=== PATIENT | male | born 1985 | race Caucasian/White ===

== ENCOUNTER 2018-09-23 00:44 | Emergency (ER) | payer SELFPAY ==
[~2018-09-23] VITALS: Ht 177.8 cm; Wt 90.7 kg
[2018-09-23 01:28] LABS: BASO # 0.1 x10^3/uL (0.0-0.2); BASO % 1 % (0-3); EOS # 0.3 x10^3/uL (0.0-0.7); EOS % 4 % (0-3); HEMATOCRIT 47.4 % (39.0-53.0); HEMOGLOBIN 15.8 g/dL (13.0-17.5); LYMPH # 3.3 x10^3/uL (1.0-4.8); LYMPH % 40 % (24-48); MEAN CORPUSCULAR HEMOGLOBIN 27 pg (25-35); MEAN CORPUSCULAR HGB CONC 33 g/dL (31-37); MEAN CORPUSCULAR VOLUME 83 fL (79-100); MONO # 0.8 x10^3/uL (0.0-1.1); MONO % 10 % (0-9); NEUT # 3.7 x10^3/uL (1.8-7.7); NEUT % 45 % (31-73); PLATELET COUNT 292 x10^3/uL (140-400); RED BLOOD COUNT 5.75 x10^6/uL (4.30-5.70); RED CELL DISTRIBUTION WIDTH 19.4 % (11.5-14.5); WHITE BLOOD COUNT 8.1 x10^3/uL (4.0-11.0)
[2018-09-23 01:36] LABS: PROTHROMBIN TIME PATIENT 13.9 SEC (11.7-14.0)
[2018-09-23 01:41] LABS: CALCIUM 8.6 mg/dL (8.5-10.1); CREATININE 1.2 mg/dL (0.7-1.3); GFR 70.2; POTASSIUM 4.5 mmol/L (3.5-5.1)
[2018-09-23] MEDS ORDERED: CONTRAST GIVEN. MC PRN (01:45)
[2018-09-23 01:47] LABS: ALBUMIN 3.3 g/dL (3.4-5.0); ALBUMIN/GLOBULIN RATIO 0.9 (1.0-1.7); TOTAL BILIRUBIN 0.4 mg/dL (0.2-1.0); TOTAL PROTEIN 6.9 g/dL (6.4-8.2)
[2018-09-23] MEDS ORDERED: fentaNYL PF VIAL 100 MCG/2 ML VIAL IV ONE (02:00)
[2018-09-23] MEDS ORDERED: IOHEXOL 300 MG/ML 100ML VIAL. IV ONE (02:00)
[2018-09-23] MEDS ORDERED: LIDOCAINE 2% 20 ML VIAL. IJ ONE (02:00)
--- NOTE | 2018-09-23 02:40 | RAD ---
PQRS Compliance Statement: One or more of the following individualized dose reduction techniques were utilized for this examination: 1. Automated exposure control 2. Adjustment of the mA and/or kV according to patient size 3. Use of iterative reconstruction technique CT HEAD AND CERVICAL SPINE WITHOUT CONTRAST History: Trauma, 15 steps. Large left flank abrasion. Fall. Comparison: None. Procedure: Axial images are obtained of the head from the skull base through the vertex without IV contrast. Noncontrast helical CT of the cervical spine was performed. Axial, sagittal, and coronal reconstructions were obtained. Findings: The ventricles and sulci are normal for the patient's age. No mass-effect, midline shift, hemorrhage or obvious acute infarction is identified. Basilar cisterns are patent. Bone windows demonstrate no significant calvarial abnormality. The visualized paranasal sinuses are clear. Mastoid air cells are well aerated. There is no evidence of acute fracture or acute malalignment of the cervical spine. 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 There is disc space narrowing and degenerative endplate spurring of C6/C7. No perched or jumped facet joints. There is well-corticated nonunion at the tip of the C7 spinous process. Finding may be congenital or due to old trauma. The craniovertebral junction is intact. Visualized soft tissues of the neck demonstrate no significant abnormalities. The visualized lung apices are clear. IMPRESSION: 1. No acute intracranial abnormality. 2. No acute fracture of the cervical spine. Electronically signed by: Matthew Graham MD (09/23/2018 2:37 AM) [facility]
--- NOTE | 2018-09-23 02:58 | RAD ---
PQRS Compliance Statement: One or more of the following individualized dose reduction techniques were utilized for this examination: 1. Automated exposure control 2. Adjustment of the mA and/or kV according to patient size 3. Use of iterative reconstruction technique CT CHEST ABD PELVIS W/CONTRAST Clinical Indication: Trauma, 15 steps. Large left flank abrasion. Fall. Comparison: None. TECHNIQUE: Helical CT imaging of the chest abdomen and pelvis is performed after 75 cc of Omnipaque 300 IV contrast. Findings: There is no acute traumatic aortic injury. No mediastinal hematoma. Moderate bilateral gynecomastia. Cardiac size normal, no pericardial effusion. There is no pneumothorax. The central airways are patent. The lungs are clear. There is no acute traumatic solid organ injury in the upper abdomen. No acute injury of bowel. The appendix is normal. There is no intraperitoneal free air or free fluid. The urinary bladder is intact. No acute fracture of the thoracic spine. There is bilateral L5 spondylolysis. Mild grade 1 anterolisthesis of L5 on S1. Minimal grade 1 retrolisthesis of L4 on L5. No acute pelvic fracture. No acute displaced rib fracture. IMPRESSION: No acute traumatic injury in the chest abdomen or pelvis. Electronically signed by: Matthew Graham MD (09/23/2018 2:55 AM) [facility]
[2018-09-23] MEDS ORDERED: MORPHINE SULFATE 4 MG/ML VIAL. IV ONE (03:00)
[2018-09-23] MEDS ORDERED: CEPH500T PO (03:49)
[2018-09-23 04:00] VITALS: BP 136/70
[2018-09-23] MEDS ORDERED: DIPHTH,PERTUSS(ACELL),TET TOX 0.5 ML DISP.SYRIN. VAX IM ONE (04:00)
--- NOTE | 2018-09-23 04:34 | PHYS DOC ---
Past Medical History Past Medical History: No Pertinent History Past Surgical History: No Surgical History Alcohol Use: None Drug Use: None Adult General Chief Complaint Chief Complaint: TRAUMA ALERT HPI HPI Patient is a 33 year old m cc of trauma. Patient is living in a new house open the wrong door fell down 15 stairs then passed out when he tried to get up. hit head, also comlpaining of neck pain right side lateral no cp no abdo pain also complaining of right finger dislocation Review of Systems Review of Systems Constitutional: Denies fever or chills [] Eyes: Denies change in visual acuity, redness, or eye pain [] HENT: Denies nasal congestion or sore throat [] Integument: Neurologic:s [] All other systems were reviewed and found to be within normal limits, except as documented in this note. Current Medications Current Medications Current Medications Medications (Trade) Dose Ordered Sig/Sparkle Start Time Stop Time Status Last Admin Dose Admin Cefazolin Sodium 50 ml @ 100 mls/hr 1X ONCE 09/23/18 02:00 09/23/18 02:29 DC 09/23/18 02:15 100 MLS/HR Diphtheria/ Tetanus/Acell Pertussis (Boostrix) 0.5 ml ONCE ONCE 09/23/18 04:00 09/23/18 04:01 DC 09/23/18 03:45 0.5 ML Fentanyl Citrate (Fentanyl 2ml Vial) 50 mcg 1X ONCE 09/23/18 02:00 09/23/18 02:01 DC 09/23/18 02:07 50 MCG Info (CONTRAST GIVEN -- Rx MONITORING) 1 each PRN DAILY PRN 09/23/18 01:45 09/23/18 04:10 DC Iohexol (Omnipaque 300 Mg/ml) 75 ml 1X ONCE 09/23/18 02:00 09/23/18 02:01 DC 09/23/18 01:55 75 ML Lidocaine HCl 20 ml 1X ONCE 09/23/18 02:00 09/23/18 02:01 DC 09/23/18 02:00 20 ML Morphine Sulfate (Morphine Sulfate) 4 mg 1X ONCE 09/23/18 03:00 09/23/18 03:01 DC 09/23/18 02:49 4 MG Allergies Allergies Allergies Coded Allergies Type Severity Reaction Last Updated Verified No Known Drug Allergies 09/23/18 No Physical Exam Physical Exam Constitutional: Well developed, well nourished, no acute distress, non-toxic appearance. [] HENT: Normocephalic, atraumatic, bilateral external ears normal, oropharynx moist, no oral exudates, nose normal. [] Eyes: PERRLA, EOMI, conjunctiva normal, no discharge. [] Neck: In c-collar there is mostly paraspinous tenderness laterally C4-C5 Cardiovascular:Heart rate regular rhythm, no murmur [] Lungs & Thorax: Bilateral breath sounds clear to auscultation [] Abdomen: Bowel sounds normal, soft, no tenderness, no masses, no pulsatile masses. [] Skin: 2 cm lac volar ring finger Back: Large abrasion on the left posterior back Extremities: There is a finger dislocation on the ring finger ring finger. Neurologic: Alert and oriented X 3, normal motor function, normal sensory function, no focal deficits noted. [] Psychologic: Affect normal, judgement normal, mood normal. [] Current Patient Data Vital Signs Vital Signs Date Time Temp Pulse Resp B/P (MAP) Pulse Ox O2 Delivery O2 Flow Rate FiO2 09/23/18 04:00 74 18 136/70 (92) 98 Room Air 09/23/18 01:00 98.0 98.0 Lab Values Laboratory Tests Test 09/23/18 01:20 White Blood Count 8.1 x10^3/uL (4.0-11.0) Red Blood Count 5.75 x10^6/uL (4.30-5.70) H Hemoglobin 15.8 g/dL (13.0-17.5) Hematocrit 47.4 % (39.0-53.0) Mean Corpuscular Volume 83 fL (79-100) Mean Corpuscular Hemoglobin 27 pg (25-35) Mean Corpuscular Hemoglobin Concent 33 g/dL (31-37) Red Cell Distribution Width 19.4 % (11.5-14.5) H Platelet Count 292 x10^3/uL (140-400) Neutrophils (%) (Auto) 45 % (31-73) Lymphocytes (%) (Auto) 40 % (24-48) Monocytes (%) (Auto) 10 % (0-9) H Eosinophils (%) (Auto) 4 % (0-3) H Basophils (%) (Auto) 1 % (0-3) Neutrophils # (Auto) 3.7 x10^3/uL (1.8-7.7) Lymphocytes # (Auto) 3.3 x10^3/uL (1.0-4.8) Monocytes # (Auto) 0.8 x10^3/uL (0.0-1.1) Eosinophils # (Auto) 0.3 x10^3/uL (0.0-0.7) Basophils # (Auto) 0.1 x10^3/uL (0.0-0.2) Prothrombin Time 13.9 SEC (11.7-14.0) Prothrombin Time INR 1.1 (0.8-1.1) Sodium Level 140 mmol/L (136-145) Potassium Level 4.5 mmol/L (3.5-5.1) Chloride Level 105 mmol/L (98-107) Carbon Dioxide Level 28 mmol/L (21-32) Anion Gap 7 (6-14) Blood Urea Nitrogen 11 mg/dL (8-26) Creatinine 1.2 mg/dL (0.7-1.3) Estimated GFR (Cockcroft-Gault) 70.2 BUN/Creatinine Ratio 9 (6-20) Glucose Level 119 mg/dL (70-99) H Calcium Level 8.6 mg/dL (8.5-10.1) Total Bilirubin 0.4 mg/dL (0.2-1.0) Aspartate Amino Transferase (AST) 23 U/L (15-37) Alanine Aminotransferase (ALT) 26 U/L (16-63) Alkaline Phosphatase 31 U/L (46-116) L Total Protein 6.9 g/dL (6.4-8.2) Albumin 3.3 g/dL (3.4-5.0) L Albumin/Globulin Ratio 0.9 (1.0-1.7) L Laboratory Tests 09/23/18 01:20 Laboratory Tests 09/23/18 01:20 EKG EKG [] Radiology/Procedures Radiology/Procedures CT HEAD AND CERVICAL SPINE WITHOUT CONTRAST History: Trauma, 15 steps. Large left flank abrasion. Fall. Comparison: None. Procedure: Axial images are obtained of the head from the skull base through the vertex without IV contrast. Noncontrast helical CT of the cervical spine was performed. Axial, sagittal, and coronal reconstructions were obtained. Findings: The ventricles and sulci are normal for the patient's age. No mass-effect, midline shift, hemorrhage or obvious acute infarction is identified. Basilar cisterns are patent. Bone windows demonstrate no significant calvarial abnormality. The visualized paranasal sinuses are clear. Mastoid air cells are well aerated. There is no evidence of acute fracture or acute malalignment of the cervical spine. 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 There is disc space narrowing and degenerative endplate spurring of C6/C7. No perched or jumped facet joints. There is well-corticated nonunion at the tip of the C7 spinous process. Finding may be congenital or due to old trauma. The craniovertebral junction is intact. Visualized soft tissues of the neck demonstrate no significant abnormalities. The visualized lung apices are clear. IMPRESSION: 1. No acute intracranial abnormality. 2. No acute fracture of the cervical spine. Electronically signed by: Matthew Carcamo MD (09/23/2018 2:37 AM) [facility] DICTATED and SIGNED BY: MATTHEW CARCAMO MD DATE: 09/23/18 0236 [] Impressions: CHEST ABD PELVIS W/CONTRAST Clinical Indication: Trauma, 15 steps. Large left flank abrasion. Fall. Comparison: None. TECHNIQUE: Helical CT imaging of the chest abdomen and pelvis is performed after 75 cc of Omnipaque 300 IV contrast. Findings: There is no acute traumatic aortic injury. No mediastinal hematoma. Moderate bilateral gynecomastia. Cardiac size normal, no pericardial effusion. There is no pneumothorax. The central airways are patent. The lungs are clear. There is no acute traumatic solid organ injury in the upper abdomen. No acute injury of bowel. The appendix is normal. There is no intraperitoneal free air or free fluid. The urinary bladder is intact. No acute fracture of the thoracic spine. There is bilateral L5 spondylolysis. Mild grade 1 anterolisthesis of L5 on S1. Minimal grade 1 retrolisthesis of L4 on L5. No acute pelvic fracture. No acute displaced rib fracture. IMPRESSION: No acute traumatic injury in the chest abdomen or pelvis. Electronically signed by: Matthew Carcamo MD (09/23/2018 2:55 AM) [facility] [place] DICTATED and SIGNED BY: MATTHEW CARCAMO MD DATE: 09/23/18 0255 Course & Med Decision Making Course & Med Decision Making Pertinent Labs and Imaging studies reviewed. (See chart for details) []33-year-old male fell down the stairs about 15 stairs by accident he open the wrong door in a house he just moved into. Patient CT scanning was negative procedure note Digital block for and also plain lidocaine patient was challenging anesthetic. I did perform a volar block as well finally got adequate anesthesia did a manual reduction usual technique had a great clinical reduction. No fracture on the initial hand x-ray that I saw. I then proceeded to pay attention to the laceration repair: 2 cm laceration volar aspect of the affected finger irrigated profusely no foreign body was identified closed with 5-0 Ethilon sutures excellent skin approximation a finger splint was applied Keflex was provided as a prescription for prophylaxis given this was an open dislocation. I gave follow-up phone number to local orthopedics for follow-up within 1 week sutures out in 10 days return precautions discussed in detail patient voiced understanding. Dragon Disclaimer Dragon Disclaimer This electronic medical record was generated, in whole or in part, using a voice recognition dictation system. Departure Departure Impression: Primary Impression: Finger dislocation Additional Impression: Laceration Disposition: 01 HOME, SELF-CARE Condition: STABLE Referrals: GURDEEP CORDERO MD Patient Instructions: Finger Dislocation Additional Instructions: suture removal in ten days Scripts Cephalexin (CEPHALEXIN) 500 Mg Tablet 1 TAB PO TID, #21 TAB Prov: GUNNAR HUTCHINS MD 09/23/18 Problem Qualifiers GUNNAR HUTCHINS MD Sep 23, 2018 04:34
--- NOTE | 2018-09-23 05:50 | RAD ---
HAND RIGHT 3V Clinical Indication: Dislocation of fourth finger, fall. Comparison: None. Findings: There is dislocation of the fourth DIP joint. The distal phalanx is posteriorly dislocated a shaft length. No acute fracture is identified. There is old fracture of the distal neck of the fifth metacarpal. The mineralization is normal. No soft tissue swelling is appreciated radiographically. IMPRESSION: Posterior dislocation of the fourth DIP joint. Electronically signed by: Matthew Graham MD (09/23/2018 5:47 AM) [facility] [place] [facility] [id number]
== END 2018-09-23 04:01 | disposition home or self-care (01) ==
LOC: ER 00:44
DX: S63.294A Dislocation of distal interphalangeal joint of right ring finger, initial encounter (principal); S61.214A Laceration without foreign body of right ring finger without damage to nail, initial encounter; S20.412A Abrasion of left back wall of thorax, initial encounter; M54.2 Cervicalgia; W10.9XXA Fall (on) (from) unspecified stairs and steps, initial encounter; Y93.89 Activity, other specified; Y92.009 Unspecified place in unspecified non-institutional (private) residence as the place of occurrence of the external cause; Y99.8 Other external cause status
CPT/HCPCS: 12001; 26770; 36415; 70450; 71260; 72125; 73130; 74177; 80053; 85025; 85610; 90471; 90715; 96365; 96375; 99285; J0690; J2001; J2270; J3010; Q9967